=== PATIENT | male | born 1980 | race American Indian/Alaskan Native ===

== ENCOUNTER 2019-06-29 18:47 | Emergency (ER) | payer SELFPAY ==
--- NOTE | 2019-06-29 19:51 | Event Note ---
ED Screening Note ED Screening Note: generalized abd pain that began two days ago no n/v/d no fever no urinary sx PMHx asthma allergy: pencillin This initial assessment/diagnostic orders/clinical plan/treatment(s) is/are subject to change based on patients health status, clinical progression and re- assessment by fellow clinical providers in the ED. Further treatment and workup at subsequent clinical providers discretion. Patient/guardian urged not to elope from the ED as their condition may be serious if not clinically assessed and managed. Initial orders include: labs, UA
[2019-06-29 20:28] LABS: Basophils # (Auto) 0.1 K/mm3 (0.0-0.1); Basophils % (Auto) 1.2 % (0.0-1.8); Eosinophils # (Auto) 0.1 K/mm3 (0.0-0.4); Eosinophils % (Auto) 0.9 % (0.0-4.3); Hemoglobin 16.4 gm/dl (11.8-15.2); Lymphocytes # (Auto) 2.5 K/mm3 (1.2-5.4); Lymphocytes % (Auto) 28.2 % (13.4-35.0); Mean Corpuscular HGB Conc 33 % (32-34); Mean Corpuscular Volume 99 fl (84-94); Monocytes # (Auto) 0.7 K/mm3 (0.0-0.8); Monocytes % (Auto) 7.7 % (0.0-7.3); Platelet Count 259 K/mm3 (140-440); Red Blood Count 4.96 M/mm3 (3.65-5.03); Red Cell Distribution Width 13.4 % (13.2-15.2)
[2019-06-29 20:31] LABS: Bilirubin,Urine NEG (Negative); Blood,Urine MOD (Negative); Color,Urine Yellow (Yellow); Mucus,Urine 3+ /HPF; Protein,Urine <15 mg/dL mg/dL (Negative); Urobilinogen,Urine < 2.0 mg/dL (<2.0)
[2019-06-29 20:40] LABS: Alanine Aminotransferase 28 units/L (7-56); Albumin 4.9 g/dL (3.9-5); BUN/Creatinine Ratio 9; Blood Urea Nitrogen 10 mg/dL (9-20); Calcium 9.8 mg/dL (8.4-10.2); Hemolysis Index 21
[2019-06-29 22:10] VITALS: BP 157/114
--- NOTE | 2019-06-29 22:27 | Emergency Department Report ---
ED Abdominal Pain HPI - General Chief Complaint: Abdominal Pain Stated Complaint: STOMACH PAIN Time Seen by Provider: 06/29/19 19:50 Source: patient Mode of arrival: Ambulatory Limitations: No Limitations - History of Present Illness Initial Comments: Mr. Knapp is a 39 y/o aam who presents for intermittent abd pain for the past year. Patient diagnosed with GERD previously. Not currently taking PPIs or H2 mani. Patient is tolerating p.o. i ntake at this time however he describes abdominal aching and cramping. States episode of constipation 2 days ago. There is been no fevers no chills,no other symptoms. He has PMHx asthma , allergy: taylin Complaint: abdominal pain Onset/Timin -: year(s) Location: diffuse Radiation: LLQ, RLQ Migration to: no migration, LLQ, RLQ Severity: moderate Severity scale (0 -10): 4 Quality: cramping Consistency: intermittent Improves With: nothing Worsens With: eating Associated Symptoms: nausea, vomiting, constipation. denies: fever, chills, dysuria, melena - Related Data Previous Rx's Medication Instructions Recorded Last Taken Type Dicyclomine [Bentyl] 10 mg PO QID PRN #30 capsule 06/29/19 Unknown Rx Naproxen 500 mg PO BID PRN #30 tablet 06/29/19 Unknown Rx Ondansetron [Zofran Odt] 4 mg PO Q8HR PRN #12 tab.rapdis 06/29/19 Unknown Rx ED Review of Systems ROS: Stated complaint: STOMACH PAIN Other details as noted in HPI Constitutional: denies: chills, fever Eyes: denies: eye pain, eye discharge, vision change ENT: denies: ear pain, throat pain Respiratory: denies: cough, shortness of breath, wheezing Cardiovascular: denies: chest pain, palpitations Endocrine: no symptoms reported Gastrointestinal: as per HPI, abdominal pain, nausea, vomiting, constipation. denies: diarrhea Genitourinary: denies: urgency, dysuria, frequency, hematuria, discharge Musculoskeletal: denies: back pain, joint swelling, arthralgia Skin: denies: rash, lesions Neurological: denies: headache, weakness, paresthesias Psychiatric: denies: anxiety, depression Hematological/Lymphatic: denies: easy bleeding, easy bruising ED Past Medical Hx - Past Medical History Previous Medical History?: No - Surgical History Past Surgical History?: Yes Additional Surgical History: Hernia repair - Social History Smoking Status: Current Every Day Smoker Substance Use Type: Marijuana - Medications Home Medications: Home Medications Medication Instructions Recorded Confirmed Last Taken Type Dicyclomine [Bentyl] 10 mg PO QID PRN #30 capsule 06/29/19 Unknown Rx Naproxen 500 mg PO BID PRN #30 tablet 06/29/19 Unknown Rx Ondansetron [Zofran Odt] 4 mg PO Q8HR PRN #12 tab.rapdis 06/29/19 Unknown Rx ED Physical Exam - General Limitations: No Limitations General appearance: alert, in no apparent distress - Head Head exam: Present: atraumatic, normocephalic - Eye Eye exam: Present: normal appearance, PERRL, EOMI Pupils: Present: normal accommodation - ENT ENT exam: Present: mucous membranes moist - Neck Neck exam: Present: normal inspection, full ROM. Absent: tenderness, lymphadenopathy, thyromegaly - Respiratory Respiratory exam: Present: normal lung sounds bilaterally. Absent: respiratory distress, wheezes, stridor, chest wall tenderness - Cardiovascular Cardiovascular Exam: Present: regular rate, normal rhythm, normal heart sounds. Absent: systolic murmur, diastolic murmur, rubs, gallop - GI/Abdominal GI/Abdominal exam: Present: soft, normal bowel sounds. Absent: distended, tenderness, guarding, rebound, rigid, bruit, hernia - Expanded GI/Abdominal Exam Expanded GI/Abdominal exam: Absent: psoas sign, obturator sign, heel tap sign, Mae's sign, Rovsing's sign, tenderness at [place]bur[place]'s Point, ascites - Rectal Rectal exam: Present: deferred - Extremities Exam Extremities exam: Present: normal inspection, full ROM. Absent: tenderness - Back Exam Back exam: Present: normal inspection, full ROM. Absent: tenderness - Neurological Exam Neurological exam: Present: alert, oriented X3, CN II-XII intact, normal gait - Psychiatric Psychiatric exam: Present: normal affect, normal mood - Skin Skin exam: Present: warm, dry, intact, normal color. Absent: rash ED Course Vital Signs 06/29/19 06/29/19 19:49 22:09 Temperature 98.7 F Pulse Rate 62 72 Respiratory 18 17 Rate Blood Pressure 170/105 Blood Pressure 157/114 [Right] O2 Sat by Pulse 98 Oximetry ED Medical Decision Making - Lab Data Result diagrams: 06/29/19 19:55 06/29/19 19:55 Labs 06/29/19 06/29/19 06/29/19 19:55 19:55 Unknown WBC 8.7 RBC 4.96 Hgb 16.4 H Hct 49.0 H MCV 99 H MCH 33 H MCHC 33 RDW 13.4 Plt Count 259 Lymph % (Auto) 28.2 [place] % (Auto) 7.7 H Eos % (Auto) 0.9 Baso % (Auto) 1.2 Lymph # 2.5 [place]herty # 0.7 Eos # 0.1 Baso # 0.1 Seg Neutrophils % 62.0 Seg Neutrophils # 5.4 Sodium 140 Potassium 4.0 Chloride 100.2 Carbon Dioxide 23 Anion Gap 21 BUN 10 Creatinine 1.1 Estimated GFR > 60 BUN/Creatinine Ratio 9 Glucose 95 Calcium 9.8 Total Bilirubin 1.60 H AST 24 ALT 28 Alkaline Phosphatase 109 Total Protein 8.0 Albumin 4.9 Albumin/Globulin Ratio 1.6 Lipase 25 Urine Color Yellow Urine Turbidity Clear Urine pH 5.0 Ur Specific [place] 1.027 Urine Protein <15 mg/dl Urine Glucose (UA) Neg Urine Ketones Tr Urine Blood Mod Urine Nitrite Neg Urine Bilirubin Neg Urine Urobilinogen < 2.0 Ur Leukocyte Esterase Neg Urine WBC (Auto) 1.0 Urine RBC (Auto) 7.0 Urine Mucus 3+ - Medical Decision Making pt states symptoms are improved, he declines imaging, he declines ivfs, or medications , states he has to go now as he has been here for 4 hrs. His cmp, cbc noted recommended IVFs and and antiemetics UA, CT Abd and Pelvis however pt refused. , pt is tolerating po intake without symptoms at this time, given prolonged symptoms for over 1 year, outpatient follow up is reasonable, plan: zofran, bentyl, naproxen, follow up with GI, take ppi as prescribed by pcp, giv en follow up with GI. pt verbalized agreement and undestanding of discharge plan. Critical care attestation.: If time is entered above; I have spent that time in minutes in the direct care of this critically ill patient, excluding procedure time. ED Disposition Clinical Impression: Abdominal pain Qualifiers: Abdominal location: generalized Qualified Code(s): R10.84 - Generalized abdominal pain Nausea & vomiting Qualifiers: Vomiting type: unspecified Vomiting Intractability: non-intractable Qualified Code(s): R11.2 - Nausea with vomiting, unspecified Disposition: TO HOME OR SELFCARE Is pt being admited?: No Does the pt Need Aspirin: No Condition: Stable Instructions: Acute Nausea and Vomiting (ED), Abdominal Pain (ED) Prescriptions: Dicyclomine [Bentyl] 10 mg PO QID PRN #30 capsule PRN Reason: abd spasm Naproxen 500 mg PO BID PRN #30 tablet PRN Reason: pain Ondansetron [Zofran Odt] 4 mg PO Q8HR PRN #12 tab.rapdis PRN Reason: Nausea And Vomiting Referrals: [facility] [Provider Group] - 3-5 Days Forms: Work/School Release Form(ED) Time of Disposition: 22:41
== END 2019-06-29 22:32 | disposition home or self-care (01) ==
LOC: ED 18:47
DX: R10.84 Generalized abdominal pain (principal); R11.2 Nausea with vomiting, unspecified; K59.00 Constipation, unspecified; F17.200 Nicotine dependence, unspecified, uncomplicated; F12.10 Cannabis abuse, uncomplicated; Z98.890 Other specified postprocedural states
CPT/HCPCS: 36415; 80053; 81001; 83690; 85025

== ENCOUNTER 2020-09-18 21:44 | Emergency (ER) | payer SELFPAY ==
[2020-09-18 22:12] VITALS: BP 143/105
--- NOTE | 2020-09-19 00:33 | Emergency Department Report ---
Chief Complaint: Weakness Stated Complaint: NIGHT SWEATS/NO APPETITE/HIGH BP Time Seen by Provider: 09/19/20 00:25 - ROS Review of Systems: Chief complaint: I just have not been feeling well. HPI this is a 40-year-old male who presents with a decreased appetite fatigue chills sweats. He fasted for the last 3 days for sinus syndrome. He is concerned about elevated blood pressure. He is not given diagnosis of hypertension. But he noticed after age 39 his blood pressure has been elevated. He smokes marijuana daily. He denies prescription pain. Just generalized malaise. In general patient appears well. No distress. Blood pressure 143/105. Stable vital signs. I recommended outpatient evaluation. I do not detect life or limb threatening condition. Medical screening exam performed completed. I have provided outpatient referral for primary care. - Exam Vital Signs: Vital Signs 09/18/20 22:11 Temperature 98.4 F Pulse Rate 77 Respiratory 18 Rate Blood Pressure 143/105 O2 Sat by Pulse 99 Oximetry MSE screening note: Focused history and physical exam performed. Due to findings the following was ordered: ED Disposition for MSE Clinical Impression: Encounter for medical screening examination Disposition: Z-[id number] MED SCREENING EXAM-LEFT Is pt being admited?: No Does the pt Need Aspirin: No Condition: Stable Instructions: Health Maintenance, Male Referrals: KAE ALEJO MD [Primary Care Provider] - 3-5 Days CHANTELLE GUERRERO MD [Staff Physician] - 3-5 Days
== END 2020-09-19 00:41 | disposition left against medical advice (07) ==
LOC: ED 21:44
DX: I10 Essential (primary) hypertension (principal); Z53.21 Procedure and treatment not carried out due to patient leaving prior to being seen by health care provider